=== PATIENT | female | born 1960 | race Caucasian/White ===

== ENCOUNTER 2016-08-20 15:30 | Emergency (ER) | payer OTHER ==
[~2016-08-20] VITALS: Ht 157.5 cm; Wt 84.2 kg
[~2016-08-20 15:30] MED LIST: HYDR-3498 PO; IBUP800T25 PO
[2016-08-20 15:32] VITALS: Ht 157.5 cm; Wt 84.2 kg
[2016-08-20] MEDS ORDERED: IBUPROFEN 600 MG TAB PO ONE (17:00)
[2016-08-20] MEDS ORDERED: PRED20TA PO (17:05)
[2016-08-20] MEDS ORDERED: COLC0.6T6 PO (17:05)
[2016-08-20] MEDS ORDERED: IBUP-1542 PO (17:05)
--- NOTE | 2016-08-20 17:12 | ERD ---
ER Documentation Chief Complaint Date/Time DATE: 08/20/16 TIME: 17:06 Chief Complaint RIGHT HAND PAIN, SLIGHT REDNESS, NO TRAUMA HPI 55-year-old female is complaining of right hand pain since yesterday. Patient started noticing redness and pain over her second MCP joint of the right hand. Pain is constant and severe. Denies trauma. Denies any prior medical history. Denies tobacco, alcohol, or illicit substance abuse. ROS All systems reviewed and are negative except as per history of present illness. Medications Home Meds Active Scripts Ibuprofen* (Motrin*) 600 Mg Tab, 600 MG PO Q6H Y for PAIN AND OR ELEVATED TEMP, #30 TAB Prov:DWIGHT FORD NP 08/20/16 Colchicine* (Colcrys*) 0.6 Mg Tablet, 0.6 MG PO as directed, #3 TAB Take 2 tabs immediately, then 1 tab 1 hour later. Prov:DWIGHT FORD NP 08/20/16 Prednisone* (Prednisone*) 20 Mg Tab, 60 MG PO DAILY for 3 Days, TAB Prov:DWIGHT FORD NP 08/20/16 Ibuprofen* (Motrin*) 800 Mg Tab, 800 MG PO Q6, #30 TAB Prov:ABHISHEK CAVANAUGH NP 03/14/15 Hydrocodone Bit-Acetaminophen* ([place]*) 5-325 Mg Tab, 1 TAB PO Q6 Y for PAIN, # 20 TAB Prov:ABHISHEK CAVANAUGH NP 03/14/15 Reported Medications [None] No Conflict Check 11/30/09 Allergies Allergies: Coded Allergies: No Known Allergies (Verified Allergy, Mild, 11/30/09) PMhx/Soc History of Surgery: Yes (CHOLECYSTECTOMY 2004) Anesthesia Reaction: No Hx Neurological Disorder: No Hx Respiratory Disorders: No Hx Cardiac Disorders: No Hx Psychiatric Problems: No Hx Miscellaneous Medical Probl: No Hx Alcohol Use: No Hx Substance Use: No Hx Tobacco Use: No Smoking Status: Never smoker Physical Exam Vitals Vital Signs Date Time Temp Pulse Resp B/P Pulse Ox O2 Delivery O2 Flow Rate FiO2 08/20/16 15:32 98.1 74 18 131/75 99 Physical Exam General: Well-developed, well-nourished, conscious and coherent, in no distress Skin: Warm and dry without rash, good texture and turgor Head: Normocephalic without evidence of trauma Eyes: Sclera and conjunctivae normal; pupils equal, round, and reactive to light; extraocular movements are intact Neck: Supple without meningismus or adenopathy. Carotids are equal. Trachea midline. No bruits or JVD Chest: Normal AP diameter. Good expansion without retractions. Nontender. Lungs are clear to auscultate bilaterally with good tidal volume Heart: Regular rate and rhythm. No murmur, rub, or gallops heard Extremities: MCP joint of the right index finger warm, erythematous, swollen , exquisitely tender to touch. Limited range of motion of the joint due to pain. Good strength bilaterally. No clubbing, cyanosis, or edema. Peripheral pulses are intact. Sensation intact Neuro: Alert and oriented 4, GCS 15. Cranial nerves grossly intact. Motor and sensory exams nonfocal. Moves all extremities. Speech clear. Gait normal Results 24 hrs Current Medications Medications (Trade) Dose Ordered Sig/Leanna Route PRN Reason Start Time Stop Time Status Last Admin Dose Admin Ibuprofen (Motrin) 600 mg ONCE ONCE PO 08/20/16 17:00 08/20/16 17:01 DC 08/20/16 16:51 PROCEDURE: Right hand series CLINICAL INDICATION: Right hand pain TECHNIQUE: Three views of the right hand were obtained. COMPARISON: No prior studies are available for comparison. FINDINGS: There is normal mineralization and alignment of the bones of the right hand. There is no evidence of acute fracture or dislocation. Joint spaces are well maintained. There is no evidence of osteophyte formation or erosions. The soft tissues are within normal limits. IMPRESSION: 1. Unremarkable right hand series. 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 X-ray of the right hand is negative for fractures dislocations. Patient' s symptoms exam findings are consistent with gout. I doubt septic joint, osteomyelitis. Patient does not have any prior history of gout. Ibuprofen given to the patient in the ED for pain. Patient also provided with education on gout and gout diet. Patient appears well, stable for discharge and outpatient management. Medical decision making shared with patient and family. Education provided to patient and family. Patient and family expressed understanding of the plan. Medications on discharge: Ibuprofen, colchicine, prednisone. Follow-up: Primary care provider in 2-3 days or return to ED if worse. Departure Diagnosis: Primary Impression: Pain of hand Laterality: right Qualified Code: M79.641 - Pain of right hand Condition: Good Patient Instructions: What Is Gout?, Eating to Prevent Gout Referrals: MARIBEL CERON (PCP) Additional Instructions: Llame al doctor MAANA y adan kim CARLOS PARA DENTRO DE 2-3 PECK.Dgale a la secretaria que nosotros le instruimos hacer esta carlos.Avise o llame si mario condicin se empeora antes de la carlos. Regresa aqui si peor o no mejor. DWIGHT FORD NP Aug 20, 2016 17:12
--- NOTE | 2016-08-20 17:49 | RADRPT ---
PROCEDURE: Right hand series CLINICAL INDICATION: Right hand pain TECHNIQUE: Three views of the right hand were obtained. COMPARISON: No prior studies are available for comparison. FINDINGS: There is normal mineralization and alignment of the bones of the right hand. There is no evidence o f acute fracture or dislocation. Joint spaces are well maintained. There is no evidence of osteoph yte formation or erosions. The soft tissues are within normal limits. IMPRESSION: 1. Unremarkable right hand series. RPTAT: AA .Ced Parry MD, MD Date Time Electronically viewed and signed by .Ced Parry MD, on 08/20/2016 17:48 .B/
== END 2016-08-20 17:59 | disposition home or self-care (01) ==
LOC: FTE 15:30
DX: M79.641 Pain in right hand (principal)
CPT/HCPCS: 73130; Z7502; Z7610

== ENCOUNTER 2017-01-22 17:24 | Emergency (ER) | payer OTHER ==
[~2017-01-22] VITALS: Ht 160 cm; Wt 70.4 kg
[~2017-01-22 17:24] MED LIST changes: +COLC0.6T6 PO; +IBUP-1542 PO; +PRED20TA PO
[2017-01-22 17:28] VITALS: Ht 160 cm; Wt 70.4 kg
--- NOTE | 2017-01-22 18:46 | RADRPT ---
PROCEDURE: Left hand x-ray CLINICAL INDICATION: Fall 3 weeks ago. Left hand pain, with reference marker directed towards the f irst metacarpal. TECHNIQUE: AP, lateral and oblique views of the left hand were obtained. COMPARISON: None FINDINGS: There is normal mineralization. No acute fracture or dislocation is seen. There are no significant degenerative changes. There is no significant soft tissue swelling. IMPRESSION: Normal x-ray of the left hand x-ray . RPTAT: [facility] Physician Ayde Date Time Electronically viewed and signed by Physician Ayde on 01/22/2017 18:46 RS/
--- NOTE | 2017-01-22 18:48 | RADRPT ---
PROCEDURE: X-ray left wrist. CLINICAL INDICATION: Fall 3 weeks ago. Reference marker directed towards the lateral carpus. TECHNIQUE: 4 views of the wrist, including dedicated scaphoid view. COMPARISON: None. FINDINGS: No acute fracture or dislocation. Soft tissues unremarkable. IMPRESSION: No acute fracture. RPTAT: [facility] Physician Ayde Date Time Electronically viewed and signed by Roc Cardenas Physician on 01/22/2017 18:48 RS/
--- NOTE | 2017-01-22 18:51 | ERD ---
ER Documentation Chief Complaint Chief Complaint left hand pain x 3 weeks, s/p fall HPI This 56-year-old female presents emergency department today complaining of left hand and wrist pain after a fall 3 weeks ago. States she took Advil. 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 Sometimes she has pain that moves up into her wrist. Denies any fevers or chills. ROS All systems reviewed and are negative except as per history of present illness. Medications Home Meds Active Scripts Ibuprofen* (Motrin*) 600 Mg Tab, 600 MG PO Q6H Y for PAIN AND OR ELEVATED TEMP, #30 TAB Prov:DWIGHT FORD NP 08/20/16 Colchicine* (Colcrys*) 0.6 Mg Tablet, 0.6 MG PO as directed, #3 TAB Take 2 tabs immediately, then 1 tab 1 hour later. Prov:WDIGHT FORD NP 08/20/16 Prednisone* (Prednisone*) 20 Mg Tab, 60 MG PO DAILY for 3 Days, TAB Prov:DWIGHT FORD NP 08/20/16 Ibuprofen* (Motrin*) 800 Mg Tab, 800 MG PO Q6, #30 TAB Prov:ABHISHEK CAVANAUGH NP 03/14/15 Hydrocodone Bit-Acetaminophen* ([place]*) 5-325 Mg Tab, 1 TAB PO Q6 Y for PAIN, # 20 TAB Prov:ABHISHEK CAVANAUGH NP 03/14/15 Reported Medications [None] No Conflict Check 11/30/09 Allergies Allergies: Coded Allergies: No Known Allergies (Verified Allergy, Mild, 11/30/09) PMhx/Soc History of Surgery: Yes (CHOLECYSTECTOMY 2004) Anesthesia Reaction: No Hx Neurological Disorder: No Hx Respiratory Disorders: No Hx Cardiac Disorders: No Hx Psychiatric Problems: No Hx Miscellaneous Medical Probl: No Hx Alcohol Use: No Hx Substance Use: No Hx Tobacco Use: No Smoking Status: Never smoker Physical Exam Vitals Vital Signs Date Time Temp Pulse Resp B/P Pulse Ox O2 Delivery O2 Flow Rate FiO2 01/22/17 17:28 97.6 79 18 130/89 96 Physical Exam Const: NAD Head: Atraumatic Eyes: Normal Conjunctiva ENT: Normal External Ears, Nose and Mouth. Neck: Full range of motion..~ No meningismus. Resp: Clear to auscultation bilaterally Cardio: Regular rate and rhythm, no murmurs Abd: Soft, non tender, non distended. Normal bowel sounds Skin: No petechiae or rashes MSk: Hand and wrist with no obvious deformity. Full active range of motion. Tenderness to palpation over thumb and second metatarsal. Nontender scaphoid. Mild tenderness palpation wrist. Nontender forearm. Pulses 2+. Distal neurovascularly intact. Neur: Awake and alert Psych: Normal Mood and Affect Results 24 hrs DIAGNOSTIC IMAGING REPORT Patient: YASMANI SANTIAGO : 1960 Age: 56 Sex: F MR #: [id number] DOS: 01/22/17 0000 Ordering MD: PHILLIP BINGHAM PA-C Location: [facility] Room/Bed: PROCEDURE: Left hand x-ray CLINICAL INDICATION: Fall 3 weeks ago. Left hand pain, with reference marker directed towards the first metacarpal. TECHNIQUE: AP, lateral and oblique views of the left hand were obtained. COMPARISON: None FINDINGS: There is normal mineralization. No acute fracture or dislocation is seen. There are no significant degenerative changes. There is no significant soft tissue swelling. IMPRESSION: Normal x-ray of the left hand x-ray . RPTAT: [facility] Physician Ayde Date Time Electronically viewed and signed by Physician Ayde on 01/22/2017 18:46 RS/ CC: PHILLIP BINGHAM PA-C DIAGNOSTIC IMAGING REPORT Patient: YASMANI SANTIAGO : 1960 Age: 56 Sex: F MR #: [id number] DOS: 01/22/17 0000 Ordering MD: PHILLIP BINGHAM PA-C Location: [facility] Room/Bed: PROCEDURE: X-ray left wrist. CLINICAL INDICATION: Fall 3 weeks ago. Reference marker directed towards the lateral carpus. TECHNIQUE: 4 views of the wrist, including dedicated scaphoid view. COMPARISON: None. FINDINGS: No acute fracture or dislocation. Soft tissues unremarkable. IMPRESSION: No acute fracture. RPTAT: [facility] Physician Ayde Date Time Electronically viewed and signed by Roc Cardenas Physician on 01/22/2017 18:48 RS/ CC: PHILLIP BINGHAM PA-C Procedures/MDM This a 56-year-old female presents the emergency department today complaining of left hand and wrist pain after mechanical fall 3 weeks ago. Given patient's complaints I did obtain images. The radiology report images of the left hand and wrist show no acute fracture dislocation. Soft tissues are unremarkable. There is no significant degenerative changes. Patient symptoms at this time is consistent with sprain versus strain versus contusion secondary to mechanical fall. I have low suspicion versus scaphoid fracture she does not have any tenderness in that area. Patient declined pain medication here in the emergency department. She will be given a prescription for Naprosyn and Tylenol for home. She was given a Velcro wrist splint to wear for comfort. At this time the patient is stable for discharge and outpatient management. Patient should follow up with their PCP in the next 1-2 days. They may return to the emergency department sooner for any persistent or worsening of symptoms. Patient understood and agreed with the plan. PHILLIP BINGHAM PA-C Jan 22, 2017 18:51
[2017-01-22] MEDS ORDERED: ACET500C5 PO (19:03)
[2017-01-22] MEDS ORDERED: NAPR-260 PO (19:03)
[2017-01-22 19:10] VITALS: BP 120/80; PULSE 74; RESP 18; TEMP 98.7
== END 2017-01-22 19:10 | disposition home or self-care (01) ==
LOC: FTE 17:24
DX: M79.642 Pain in left hand (principal); M25.532 Pain in left wrist
CPT/HCPCS: 29125; 73110; 73130; Z7502